=== PATIENT | female | born 1940 | race Hispanic/Latino ===

== ENCOUNTER 2017-04-23 15:44 | Inpatient (IN) | payer MEDICAID ==
[~2017-04-23] VITALS: Ht 167.6 cm; Wt 55.8 kg
[2017-04-23 17:37] LABS: BASOPHILS % (AUTO) 1.1 % (0.0-2.0); LYMPHOCYTES % (AUTO) 10.8 % (20.0-45.0); MEAN CORPUSCULAR HEMOGLOBIN 29.8 PG (27.0-31.0); MEAN CORPUSCULAR HGB CONC 34.3 G/DL (32.0-36.0); MEAN CORPUSCULAR VOLUME 87 FL (80-99); MEAN PLATELET VOLUME 10.4 FL (6.5-10.1); MONOCYTES % (AUTO) 4.5 % (1.0-10.0); NEUTROPHILS % (AUTO) 82.5 % (45.0-75.0); PLATELET COUNT 261 K/UL (150-450); RED CELL DISTRIBUTION WIDTH 12.7 % (11.6-14.8); WHITE BLOOD COUNT 12.4 K/UL (4.8-10.8)
[2017-04-23 18:01] LABS: TROPONIN I < 0.30 ng/mL (<=0.30)
[2017-04-23 18:04] LABS: ALANINE AMINOTRANSFERASE 32 U/L (3-33); ALBUMIN/GLOBULIN RATIO 1.2 (1.0-2.7); ANION GAP 13 (5-15); ASPARTATE AMINO TRANSFERASE 42 U/L (5-40); CALCIUM 9.2 mg/dL (8.6-10.2); CARBON DIOXIDE 26 mEQ/L (20-30); CHLORIDE 103 mEQ/L (98-107); CREATININE 0.9 mg/dL (0.5-0.9); HEMOLYSIS 6; SODIUM 142 mEQ/L (135-145); TOTAL PROTEIN 7.1 g/dL (6.6-8.7)
[2017-04-23 18:14] LABS: CKMB 1.9 ng/mL (< 3.8)
[2017-04-23] MEDS ORDERED: cefTRIAXone 1 GM in NS 55 ML IVPB ONE (19:45)
[2017-04-23 20:09] LABS: APPEARANCE,URINE CLEAR; KETONES,URINE NEGATIVE (NEGATIVE); LEUKOCYTE ESTERASE ,URINE NEGATIVE (NEGATIVE); NITRITE,URINE NEGATIVE (NEGATIVE); PH,URINE 6.5 (4.5-8.0); PROTEIN,URINE NEGATIVE (NEGATIVE); UROBILINOGEN,URINE NORMAL MG/DL (0.0-1.0)
[2017-04-23] MEDS ORDERED: Nitroglycerin Subl 0.4mg tab (Bottle Of 25) SL PRN (21:30)
[2017-04-23] MEDS ORDERED: Morphine Sulfate 2mg/ml Inj IVP PRN (21:30)
[2017-04-23] MEDS ORDERED: LORazepam Inj 2mg/ml 1ml IV PRN (21:30)
[2017-04-23] MEDS ORDERED: Mylanta II UD 30ml ORAL PRN (21:30)
[2017-04-23] MEDS ORDERED: Miralax 17gm pkt ORAL PRN (21:30)
[2017-04-23] MEDS ORDERED: DuoNeb 0.5-3(2.5)mg/3ml neb HHN PRN (21:30)
[2017-04-23 21:53] VITALS: BP 116/69
--- NOTE | 2017-04-23 21:57 | Emergency Room Report ---
History of Present Illness General Chief Complaint: Generalized Weakness Source: Patient, EMS Present Illness HPI The patient is a 76-year-old female presenting from a convalescent hospital for a feeling of weakness. The patient states that she was walking to [place] when she began to feel hot and weak. She denies falling. She denies loss of consciousness. She denies any pain at this time. She denies chest pain or shortness of breath. she denies any other symptoms including nausea, vomiting, fever, chills Allergies: Coded Allergies: No Known Allergies (Unverified , 04/23/17) Patient History Past Medical History: see triage record Pertinent Family History: none Reviewed Nursing Documentation: PMH: Agreed, PSxH: Agreed Nursing Documentation-PMH Past Medical History: No History, Except For Hx Diabetes: Yes Review of Systems All Other Systems: negative except mentioned in HPI Physical Exam Vital Signs Date Time Temp Pulse Resp B/P Pulse Ox O2 Delivery O2 Flow Rate FiO2 04/23/17 15:43 97.2 82 16 120/73 97 Room Air Sp02 EP Interpretation: reviewed, normal General Appearance: no apparent distress, alert, GCS 15, non-toxic Head: normocephalic, atraumatic Eyes: bilateral eye PERRL, bilateral eye normal inspection ENT: hearing grossly normal, normal pharynx, no angioedema, normal voice Neck: full range of motion, supple/symm/no masses Respiratory: chest non-tender, lungs clear, normal breath sounds, speaking full sentences Cardiovascular #1: regular rate, rhythm, no edema Gastrointestinal: normal bowel sounds, non tender, soft, non-distended, no guarding, no rebound Genitourinary: normal inspection, no CVA tenderness Musculoskeletal: back normal, gait/station normal, normal range of motion, non- tender Neurologic: alert, oriented x3, responsive, motor strength/tone normal, sensory intact, speech normal Psychiatric: judgement/insight normal, memory normal, mood/affect normal, no suicidal/homicidal ideation Skin: normal color, no rash, warm/dry, well hydrated Lymphatic: no adenopathy Medical Decision Making PA Attestation Dr. Aguilar is my supervising physician. Patient management was discussed with my supervising physician Diagnostic Impression: Primary Impression: Left against medical advice Additional Impression: Episode of generalized weakness ER Course The patient is a 76-year-old female presenting from a convalescent hospital for a feeling of weakness. Differential diagnosis include but not limited to dehydration, ACS, PE,CHF, pneumonia, among others PE: afebrile. No apparent distress. A&Ox3 PERRL. EOMI. Normal mentation. RRR. No MRG Lungs CTA bilat Abdomen: Normal appearance. Non distended. No ecchymosis. Normal BS. Non TTP. No McBurney point tenderness. No guarding. Skin is warm and dry, no rashes. CBC shows leukocytosis. Otherwise unremarkable CMP: Mild hyperkalemia. Essentially negative cardiac markers Urinalysis unremarkable EKG and CXR unremarkable The patient is given IV fluids and admits to a mild decrease of symptoms. She'll be admitted to this hospital for generalized weakness and leukocytosis. No source of infection has been found. Blood cultures were ordered Dr. Aguilar has spoken with the admitting physician Laboratory Tests Test 04/23/17 17:13 04/23/17 19:25 White Blood Count 12.4 K/UL (4.8-10.8) H Red Blood Count 4.50 M/UL (4.20-5.40) Hemoglobin 13.4 G/DL (12.0-16.0) Hematocrit 39.0 % (37.0-47.0) Mean Corpuscular Volume 87 FL (80-99) Mean Corpuscular Hemoglobin 29.8 PG (27.0-31.0) Mean Corpuscular Hemoglobin Concent 34.3 G/DL (32.0-36.0) Red Cell Distribution Width 12.7 % (11.6-14.8) Platelet Count 261 K/UL (150-450) Mean Platelet Volume 10.4 FL (6.5-10.1) H Neutrophils (%) (Auto) 82.5 % (45.0-75.0) H Lymphocytes (%) (Auto) 10.8 % (20.0-45.0) L Monocytes (%) (Auto) 4.5 % (1.0-10.0) Eosinophils (%) (Auto) 1.0 % (0.0-3.0) Basophils (%) (Auto) 1.1 % (0.0-2.0) Sodium Level 142 mEQ/L (135-145) Potassium Level 5.0 mEQ/L (3.4-4.9) H Chloride Level 103 mEQ/L (98-107) Carbon Dioxide Level 26 mEQ/L (20-30) Anion Gap 13 (5-15) Blood Urea Nitrogen 13 mg/dL (7-23) Creatinine 0.9 mg/dL (0.5-0.9) Estimate Glomerular Filtration Rate mL/min (>60) Glucose Level 119 mg/dL (74-106) H Calcium Level 9.2 mg/dL (8.6-10.2) Total Bilirubin 0.8 mg/dL (0.0-1.2) Aspartate Amino Transferase (AST) 42 U/L (5-40) H Alanine Aminotransferase (ALT) 32 U/L (3-33) Alkaline Phosphatase 139 U/L (35-104) H Total Creatine Kinase 81 U/L (26-140) Creatine Kinase MB 1.9 ng/mL (< 3.8) Creatine Kinase MB Relative Index 2.3 Troponin I < 0.30 ng/mL (<=0.30) Total Protein 7.1 g/dL (6.6-8.7) Albumin 4.0 g/dL (3.5-5.2) Globulin 3.1 g/dL Albumin/Globulin Ratio 1.2 (1.0-2.7) Urine Color Pale yellow Urine Appearance Clear Urine pH 6.5 (4.5-8.0) Urine Specific [place] 1.015 (1.005-1.035) Urine Protein Negative (NEGATIVE) Urine Glucose (UA) Negative (NEGATIVE) Urine Ketones Negative (NEGATIVE) Urine Occult Blood Negative (NEGATIVE) Urine Nitrite Negative (NEGATIVE) Urine Bilirubin Negative (NEGATIVE) Urine Urobilinogen Normal MG/DL (0.0-1.0) Urine Leukocyte Esterase Negative (NEGATIVE) Lab Results Impression CBC shows leukocytosis. Otherwise unremarkable CMP: Mild hyperkalemia. Essentially negative cardiac markers Urinalysis unremarkable EKG Diagnostic Results EP Interpretation: NSR. No acute changes Rate: normal - 72 Rhythm: NSR ST Segments: no acute changes ASA given to the pt in ED: No PA Scribe Text EKG was reviewed and read with my supervising physician. No acute ST segment changes are seen. Normal rate and rhythm. No acute changes. Chest X-Ray Diagnostic Results Chest X-Ray Diagnostic Results : Chest X-Ray Ordered: Yes # of Views/Limited/Complete: 1 View Indication: Other - weakness EP Interpretation: Yes Interpretation: no consolidation, no effusion, no pneumothorax, no acute cardiopulmonary disease Impression: No acute disease Interpreting ER Provider: Dr. Priscilla FRIEDMAN Scribe Text I am acting as scribe for my supervising physician. My supervising physician's interpretation of the chest xrays are there is no consolidation, no effusion, no acute cardiopulmonary disease, no pneumothorax Last Vital Signs Date Time Temp Pulse Resp B/P Pulse Ox O2 Delivery O2 Flow Rate FiO2 04/23/17 15:43 97.2 82 16 120/73 97 Room Air Status: improved Disposition: ADMITTED INPATIENT Condition: Stable Referrals: Nimisha Reyes M.D. (PCP) Patient Instructions: Weakness Additional Instructions: you have chosen to leave AGAINST MEDICAL ADVICE despite the potential seriousness of your condition. You understand the potential consequences of this including . This has been interpreted to [place]oc[place] MANINDER FARMER Apr 23, 2017 21:57
[2017-04-23] MEDS ORDERED: SEROQUEL25 MG ORAL (22:15)
[2017-04-23] MEDS ORDERED: NORCO 5-325 TA1 EACH ORAL (22:16)
[2017-04-23] MEDS ORDERED: METFORMIN HCL500 M1 ORAL (22:16)
[2017-04-23] MEDS ORDERED: ECOTRIN325 MG ORAL (22:17)
[2017-04-23] MEDS ORDERED: MECLIZINE HCL25 MG ORAL (22:17)
[2017-04-23] MEDS ORDERED: NITROGLYCERIN0.4 MG SL (22:18)
[2017-04-24 04:00] VITALS: BP 128/71
[2017-04-24] MEDS: NovoLOG Insulin Flexpen SUBQ SCH ×4 (06:30→21:00)
[2017-04-24 08:13] LABS: BASOPHILS % (AUTO) 0.9 % (0.0-2.0); EOSINOPHILS % (AUTO) 2.3 % (0.0-3.0); LYMPHOCYTES % (AUTO) 20.1 % (20.0-45.0); MEAN CORPUSCULAR HEMOGLOBIN 28.3 PG (27.0-31.0); MEAN CORPUSCULAR HGB CONC 31.8 G/DL (32.0-36.0); MEAN CORPUSCULAR VOLUME 89 FL (80-99); MEAN PLATELET VOLUME 10.1 FL (6.5-10.1); MONOCYTES % (AUTO) 7.6 % (1.0-10.0); NEUTROPHILS % (AUTO) 69.2 % (45.0-75.0); PLATELET COUNT 242 K/UL (150-450); RED BLOOD COUNT 4.42 M/UL (4.20-5.40); RED CELL DISTRIBUTION WIDTH 12.8 % (11.6-14.8)
[2017-04-24 08:34] LABS: ALANINE AMINOTRANSFERASE 22 U/L (3-33); ALBUMIN/GLOBULIN RATIO 1.4 (1.0-2.7); ANION GAP 9 (5-15); ASPARTATE AMINO TRANSFERASE 24 U/L (5-40); CALCIUM 8.8 mg/dL (8.6-10.2); CARBON DIOXIDE 26 mEQ/L (20-30); CHLORIDE 106 mEQ/L (98-107); CHOLESTEROL 141 mg/dL (< 200); CHOLESTEROL/HDL RATIO 2.7 (3.3-4.4); CREATININE 0.8 mg/dL (0.5-0.9); HEMOLYSIS 4; LDL CHOLESTEROL (CALC.) 74 mg/dL (60-99); SODIUM 141 mEQ/L (135-145)
[2017-04-24 08:37] LABS: PROTHROMBIN TIME 10.5 SEC (9.30-11.50)
[2017-04-24 08:39] LABS: THYROID STIMULATING HORMONE 0.849 uIU/mL (0.300-4.500)
[2017-04-24] MEDS: Heparin 5000 units/ml inj SUBQ SCH ×2 (08:55→21:00)
--- NOTE | 2017-04-24 11:57 | History and Physical ---
History of Present Illness General Date patient seen: Apr 24, 2017 Reason for Hospitalization: Generalized Weakness Present Illness HPI 76-year-old female with hx DM, presenting from a convalescent hospital for a feeling of weakness when she was walking to [place] when she began to feel hot and weak. She denies falling. She denies loss of consciousness. She denies any pain at this time. She denies chest pain or shortness of breath. she denies any other symptoms including nausea, vomiting, fever, chills. She is admitted to telemetry, but she is refusing all the care and meds and asking for Russian food. Allergies: Coded Allergies: No Known Allergies (Unverified , 04/23/17) Medication History Scheduled Aspirin* (Ecotrin*), 81 MG ORAL DAILY, (Reported) Meclizine Hcl* (Meclizine*), 25 MG ORAL THREE TIMES A DAY, (Reported) Metformin Hcl* (Metformin Hcl*), 500 MG ORAL TWICE A DAY, (Reported) Quetiapine Fumarate* (Seroquel*), 50 MG ORAL DAILY, (Reported) Scheduled PRN Hydrocodone Bit/Acetaminophen 5-325* ([place] 5-325*), 1 TAB ORAL Q4H PRN for For Pain, (Reported) Miscellaneous Medications Nitroglycerin (Nitroglycerin), 0.4 MG SL, (Reported) Patient History Healthcare decision maker Resuscitation status Full Code Advanced Directive on File No Past Medical/Surgical History Past Medical/Surgical History: (1) Diabetes mellitus (2) Psychiatric disorder Review of Systems All Other Systems: negative except mentioned in HPI Physical Exam General Appearance: WD/WN Lines, tubes and drains: peripheral, central line, trach HEENT: normocephalic Neck: non-tender, normal alignment Respiratory/Chest: chest wall non-tender Breasts: no masses Cardiovascular/Chest: normal peripheral pulses Abdomen: normal bowel sounds, non tender Genitourinary/Rectal: normal genital exam Extremities: normal range of motion, non-tender, normal inspection Last 24 Hour Vital Signs Date Time Temp Pulse Resp B/P Pulse Ox O2 Delivery O2 Flow Rate FiO2 04/24/17 08:00 70 04/24/17 04:00 98.0 66 20 128/71 98 Room Air 04/24/17 04:00 55 04/24/17 01:02 57 04/23/17 21:54 58 16 116/69 99 Room Air 04/23/17 21:53 58 16 116/69 99 Room Air 04/23/17 15:43 97.2 82 16 120/73 97 Room Air Laboratory Tests Test 04/23/17 17:13 04/23/17 19:25 04/24/17 07:25 White Blood Count 12.4 K/UL (4.8-10.8) H 8.0 K/UL (4.8-10.8) Red Blood Count 4.50 M/UL (4.20-5.40) 4.42 M/UL (4.20-5.40) Hemoglobin 13.4 G/DL (12.0-16.0) 12.5 G/DL (12.0-16.0) Hematocrit 39.0 % (37.0-47.0) 39.3 % (37.0-47.0) Mean Corpuscular Volume 87 FL (80-99) 89 FL (80-99) Mean Corpuscular Hemoglobin 29.8 PG (27.0-31.0) 28.3 PG (27.0-31.0) Mean Corpuscular Hemoglobin Concent 34.3 G/DL (32.0-36.0) 31.8 G/DL (32.0-36.0) L Red Cell Distribution Width 12.7 % (11.6-14.8) 12.8 % (11.6-14.8) Platelet Count 261 K/UL (150-450) 242 K/UL (150-450) Mean Platelet Volume 10.4 FL (6.5-10.1) H 10.1 FL (6.5-10.1) Neutrophils (%) (Auto) 82.5 % (45.0-75.0) H 69.2 % (45.0-75.0) Lymphocytes (%) (Auto) 10.8 % (20.0-45.0) L 20.1 % (20.0-45.0) Monocytes (%) (Auto) 4.5 % (1.0-10.0) 7.6 % (1.0-10.0) Eosinophils (%) (Auto) 1.0 % (0.0-3.0) 2.3 % (0.0-3.0) Basophils (%) (Auto) 1.1 % (0.0-2.0) 0.9 % (0.0-2.0) Sodium Level 142 mEQ/L (135-145) 141 mEQ/L (135-145) Potassium Level 5.0 mEQ/L (3.4-4.9) H 4.0 mEQ/L (3.4-4.9) Chloride Level 103 mEQ/L (98-107) 106 mEQ/L (98-107) Carbon Dioxide Level 26 mEQ/L (20-30) 26 mEQ/L (20-30) Anion Gap 13 (5-15) 9 (5-15) Blood Urea Nitrogen 13 mg/dL (7-23) 12 mg/dL (7-23) Creatinine 0.9 mg/dL (0.5-0.9) 0.8 mg/dL (0.5-0.9) Estimat Glomerular Filtration Rate mL/min (>60) mL/min (>60) Glucose Level 119 mg/dL (74-106) H 104 mg/dL (74-106) Calcium Level 9.2 mg/dL (8.6-10.2) 8.8 mg/dL (8.6-10.2) Total Bilirubin 0.8 mg/dL (0.0-1.2) 1.0 mg/dL (0.0-1.2) Aspartate Amino Transf (AST/SGOT) 42 U/L (5-40) H 24 U/L (5-40) Alanine Aminotransferase (ALT/SGPT) 32 U/L (3-33) 22 U/L (3-33) Alkaline Phosphatase 139 U/L (35-104) H 119 U/L (35-104) H Total Creatine Kinase 81 U/L (26-140) Creatine Kinase MB 1.9 ng/mL (< 3.8) Creatine Kinase MB Relative Index 2.3 Troponin I < 0.30 ng/mL (<=0.30) Total Protein 7.1 g/dL (6.6-8.7) 6.0 g/dL (6.6-8.7) L Albumin 4.0 g/dL (3.5-5.2) 3.5 g/dL (3.5-5.2) Globulin 3.1 g/dL 2.5 g/dL Albumin/Globulin Ratio 1.2 (1.0-2.7) 1.4 (1.0-2.7) Urine Color Pale yellow Urine Appearance Clear Urine pH 6.5 (4.5-8.0) Urine Specific [place] 1.015 (1.005-1.035) Urine Protein Negative (NEGATIVE) Urine Glucose (UA) Negative (NEGATIVE) Urine Ketones Negative (NEGATIVE) Urine Occult Blood Negative (NEGATIVE) Urine Nitrite Negative (NEGATIVE) Urine Bilirubin Negative (NEGATIVE) Urine Urobilinogen Normal MG/DL (0.0-1.0) Urine Leukocyte Esterase Negative (NEGATIVE) Prothrombin Time 10.5 SEC (9.30-11.50) Prothromb Time International Ratio 1.0 (0.9-1.1) Activated Partial Thromboplast Time 28 SEC (23-33) Triglycerides Level 72 mg/dL (< 150) Cholesterol Level 141 mg/dL (< 200) LDL Cholesterol 74 mg/dL (60-99) HDL Cholesterol 53 mg/dL (> 60) Cholesterol/HDL Ratio 2.7 (3.3-4.4) L Thyroid Stimulating Hormone (TSH) 0.849 uIU/mL (0.300-4.500) Height (Feet): 5 Height (Inches): 6.00 Weight (Pounds): 123 Medications Current Medications Medications (Trade) Dose Ordered Sig/Ruben Route PRN Reason Start Time Stop Time Status Last Admin Dose Admin Acetaminophen (Tylenol) 650 mg Q4H PRN ORAL T>100.5 04/23/17 21:30 05/23/17 21:29 Al Hydroxide/Mg Hydroxide (Mylanta II) 30 ml Q6H PRN ORAL dyspepsia 04/23/17 21:30 05/23/17 21:29 Albuterol/ Ipratropium (DuoNeb 0.5-3(2.5)mg/3ml) 3 ml Q4H PRN HHN Shortness of Breath 04/23/17 21:30 04/28/17 21:29 Clonidine HCl (Catapres) 0.1 mg Q4H PRN ORAL SBP>160mmHg 04/23/17 21:30 05/23/17 21:29 Dextrose (Dextrose 50%) STAT PRN IV Hypoglycemia 04/23/17 21:30 05/23/17 21:29 Heparin Sodium (Porcine) (Heparin 5000 units/ml) 5,000 units EVERY 12 HOURS SUBQ 04/24/17 09:00 05/24/17 08:59 Insulin Aspart (NovoLOG) BEFORE MEALS AND HS SUBQ 04/24/17 06:30 05/24/17 06:29 Lorazepam (Ativan 2mg/ml 1ml) 0.5 mg Q4H PRN IV For Anxiety 04/23/17 21:30 04/30/17 21:29 Morphine Sulfate (Morphine Sulfate) 1 mg Q4H PRN IVP Severe Pain (Pain Scale 7-10) 04/23/17 21:30 04/30/17 21:29 Nitroglycerin (Ntg) 0.4 mg Q5M X 3 DOSES PRN SL Prn Chest Pain 04/23/17 21:30 05/23/17 21:29 Ondansetron HCl (Zofran) 4 mg Q6H PRN IVP Nausea & Vomiting 04/23/17 21:30 05/23/17 21:29 Polyethylene Glycol (Miralax) 17 gm HSPRN PRN ORAL Constipation 04/23/17 21:30 05/23/17 21:29 Temazepam (Restoril) 15 mg HSPRN PRN ORAL Insomnia 04/23/17 21:30 04/30/17 21:29 Assessment/Plan Problem List: (1) Heat exhaustion ICD Codes: T67.5XXA - Heat exhaustion, unspecified, initial encounter SNOMED: 58809766 (2) Psychiatric disorder ICD Codes: F99 - Mental disorder, not otherwise specified SNOMED: 65212352, 898071456 (3) Diabetes mellitus ICD Codes: E11.9 - Type 2 diabetes mellitus without complications SNOMED: 86594925 Assessment/Plan pt improved, refusing all care and monitoring will dc back to detention. CAIN LOPEZ Apr 24, 2017 11:57
[2017-04-24 12:00] VITALS: BP 101/61
[2017-04-24 16:00] VITALS: BP 126/70
[2017-04-24 20:00] VITALS: BP 121/61
[2017-04-25] MEDS: NovoLOG Insulin Flexpen SUBQ SCH ×2 (06:30→11:30)
[2017-04-25 07:41] VITALS: BP 91/49
[2017-04-25] MEDS: Heparin 5000 units/ml inj SUBQ SCH (09:00)
--- NOTE | 2017-04-25 10:17 | Diagnostic Imaging Report ---
Indications: Shortness of breath Technique: Portable AP chest Findings: Comparison: None Small calcified nodules are present in both lung apices. Linear density left lung base. Inspiratory for suboptimal. Cardiac silhouette partially obscured, may be enlarged. Pulmonary vasculature within normal limits. No pleural abnormality. Aortic arch mildly calcified. Bones are demineralized. Thoracic kyphosis is exaggerated. IMPRESSION: Subsegmental atelectasis left lung base Pulmonary biapical granulomatous disease Questionable cardiomegaly Aortosclerosis Osteopenia
--- NOTE | 2017-04-25 10:17 | Diagnostic Imaging Report ---
Indications: Cephalgia Technique: Continuous helical CT imaging of the brain was performed with automatic exposure control on a Siemens sensation [address] scanner. Axial and coronal images were reconstructed at 5 mm slice thickness and interval. CTDI volume(s): 70 mGy Total DLP: 1404 mGy-cm Findings: Comparison: None Confluent low attenuation is present in the bilateral periventricular and deep cerebral white matter. 2-3 mm low-attenuation focus in peripheral lateral aspect of left parietal lobe (3-21). Focal circumscribed low attenuation/parenchymal loss anterior aspect of left basal ganglia/pelayo radiata. Expected dilation of the subjacent left lateral ventricle. Ventricles, cisterns, and sulci are diffusely prominent. No evidence of mass or hemorrhage, mass effect, midline shift, hydrocephalus, or increased intracranial pressure. Bone window images are unremarkable. Visualized paranasal sinuses and mastoid air cells are clear. IMPRESSION: Left parietal peripheral high attenuation--favor calcification over punctate hemorrhage, latter not completely excludable. Recommend obtaining prior outside examinations for comparison. Otherwise no evidence of acute intracranial pathology Lacunar infarct left basal ganglia/pelayo radiata. Bilateral cerebral periventricular and deepwhite matter low attenuation, nonspecific, likely chronic microvascular ischemic in nature. This correlates with preliminary report generated overnight by Dr. Page. The CT scanner at [facility] is accredited by the [employer] and the scans are performed using protocols designed to limit radiation exposure to as low as reasonably achievable to attain images of sufficient resolution adequate for diagnostic evaluation.
--- NOTE | 2017-04-25 10:39 | Pulmonology Progress Note ---
Assessment/Plan Problems: (1) Heat exhaustion (2) Psychiatric disorder (3) Diabetes mellitus Assessment/Plan vitals signs stable, afebrile all labs are normal pt refusing to leave. Subjective ROS Limited/Unobtainable: No Interval Events: refusing all testing, refusing to leave, because she doesn't feel well Constitutional: Reports: no symptoms HEENT: Repors: no symptoms Allergies: Coded Allergies: No Known Allergies (Unverified , 04/23/17) Objective Last 24 Hour Vital Signs Date Time Temp Pulse Resp B/P Pulse Ox O2 Delivery O2 Flow Rate FiO2 04/25/17 10:03 76 18 Room Air 21 04/25/17 07:41 97.1 68 18 91/49 93 Room Air 04/25/17 04:00 63 04/25/17 00:00 70 04/24/17 20:00 75 04/24/17 20:00 98.5 63 19 121/61 97 Room Air 04/24/17 16:00 98.1 97 18 126/70 97 Room Air 04/24/17 16:00 66 04/24/17 12:00 56 04/24/17 12:00 97.3 61 18 101/61 97 Room Air Intake and Output 04/24/17 04/25/17 19:00 07:00 Output Total 400 ml Balance -400 ml Output Urine Total 400 ml # Voids 3 4 General Appearance: WD/WN, no acute distress HEENT: normocephalic, atraumatic Respiratory/Chest: chest wall non-tender, lungs clear Cardiovascular: normal peripheral pulses, normal rate Abdomen: normal bowel sounds, soft, non tender Genitourinary: normal external genitalia Extremities: no cyanosis Skin: no rash Neurologic/Psychiatric: portable sawyer II-XII grossly normal Lymphatic: no neck adenopathy Current Medications Medications (Trade) Dose Ordered Sig/Ruben Route PRN Reason Start Time Stop Time Status Last Admin Dose Admin Acetaminophen (Tylenol) 650 mg Q4H PRN ORAL T>100.5 04/23/17 21:30 05/23/17 21:29 Al Hydroxide/Mg Hydroxide (Mylanta II) 30 ml Q6H PRN ORAL dyspepsia 04/23/17 21:30 05/23/17 21:29 Albuterol/ Ipratropium (DuoNeb 0.5-3(2.5)mg/3ml) 3 ml Q4H PRN HHN Shortness of Breath 04/23/17 21:30 04/28/17 21:29 Clonidine HCl (Catapres) 0.1 mg Q4H PRN ORAL SBP>160mmHg 04/23/17 21:30 05/23/17 21:29 Dextrose (Dextrose 50%) STAT PRN IV Hypoglycemia 04/23/17 21:30 05/23/17 21:29 Heparin Sodium (Porcine) (Heparin 5000 units/ml) 5,000 units EVERY 12 HOURS SUBQ 04/24/17 09:00 05/24/17 08:59 Insulin Aspart (NovoLOG) BEFORE MEALS AND HS SUBQ 04/24/17 06:30 05/24/17 06:29 Lorazepam (Ativan 2mg/ml 1ml) 0.5 mg Q4H PRN IV For Anxiety 04/23/17 21:30 04/30/17 21:29 Morphine Sulfate (Morphine Sulfate) 1 mg Q4H PRN IVP Severe Pain (Pain Scale 7-10) 04/23/17 21:30 04/30/17 21:29 Nitroglycerin (Ntg) 0.4 mg Q5M X 3 DOSES PRN SL Prn Chest Pain 04/23/17 21:30 05/23/17 21:29 Ondansetron HCl (Zofran) 4 mg Q6H PRN IVP Nausea & Vomiting 04/23/17 21:30 05/23/17 21:29 Polyethylene Glycol (Miralax) 17 gm HSPRN PRN ORAL Constipation 04/23/17 21:30 05/23/17 21:29 Temazepam (Restoril) 15 mg HSPRN PRN ORAL Insomnia 04/23/17 21:30 04/30/17 21:29 CAIN LOPEZ Apr 25, 2017 10:39
--- NOTE | 2017-04-26 00:15 | Consultation ---
DATE OF CONSULTATION: 04/25/2017 NEUROLOGICAL CONSULTATION HISTORY OF PRESENT ILLNESS: The patient is a 76-year-old female, seen in neurological consultation to evaluate intermittent episodes of profound generalized weakness and dizziness. The patient was admitted to this hospital after she was noted when walking to the street she would feel "episodes of hot and being weak", with no loss of consciousness, no changes in level of consciousness, she did not fall and there was no other associated symptomatology. As she was brought to emergency room, her vital signs were stable. Her examination included EKG and chest x-ray, which were quite unremarkable. The patient apparently left initially against medical advice. CAT scan of the brain was obtained. This revealed left parietal peripheral high attenuation total calcification. There was no acute abnormalities. There was old lacunar infarct, left basal ganglia from the . There is also bilateral cerebral vascular periventricular deep white matter attenuation. Chronic microvascular ischemic in nature. Laboratory work included unremarkable CBC study excepted elevated WBC at 12.4. Normal coagulation. Normal urinalysis. Chemistry panel with potassium 5.0, AST 42 and alkaline phosphatase is 139, otherwise unremarkable including TSH and lipid panel. During hospitalization, the patient had some unusual behaviors, she was refusing care, medication and was subsequently much improved. PAST MEDICAL HISTORY: The patient has a history of chronic psychiatric disorder and history of diabetes. MEDICATIONS: The patient's treatment included aspirin, meclizine, metformin and Seroquel. She has needed [place] and nitroglycerin. PHYSICAL EXAMINATION: GENERAL: The patient is well-developed and well-nourished female, now sitting at the bedside and pointing on her bottle of soda, stating that it does not taste good. She was complaining that no one helps her with her dizzy spells. VITAL SIGNS: Her vital signs were stable, blood pressure 133/80 and respirations 14. HEENT: Head, normocephalic. There is no evidence of trauma. Eyes, ears, and throat are clear. NECK: Supple. No meningeal signs. MUSCULOSKELETAL: Unremarkable. No deformities. Peripheral pulses 1+, symmetric. MENTAL STATUS: She is alert and oriented x2. Speech is fluent. Language intact. There is no aphasia. No apraxia. Emotionally inappropriate. She follows command. CRANIAL NERVE II: Pupils both responding to light and accommodation. Extraocular movement intact. No nystagmus. CRANIAL NERVE V: Normal corneal responses. CRANIAL NERVE VII: No facial asymmetry. CRANIAL NERVE VIII: Slight decrease in hearing. CRANIAL NERVES IX THROUGH XII: Tongue is in midline. MOTOR EXAMINATION: Able to move arms and legs against gravity. Normal coordination. Normal svenck-ng-sdbe and heel-perez testing. Deep tendon reflexes 1+ symmetric. Gait is stable, but wobbly on the turning. IMPRESSION: 1. History of recurrent transients of dizziness and lightheadedness, very likely representing a presyncope, doubt labyrinthitis. 2. History of diabetes mellitus. 3. Chronic psychiatric disorder. RECOMMENDATION: The patient instructed during episode of dizziness, she would lie down horizontal position and take fluids. In addition, she had a trial of meclizine 12.5 mg t.i.d. for dizzy spells. Continue with aspirin 81 mg daily and bedtime Seroquel 25 mg. Currently, neurological stable. Thank you for allowing me to see in this interesting patient in neurological consultation. Tony Holm M.D. DR: ANGELA JOB#: [id number] CC:
--- NOTE | 2017-04-26 09:10 | Discharge Summary ---
Discharge Summary Hospital Course Date of Admission Apr 23, 2017 at 21:35 Date of Discharge Apr 25, 2017 at 14:23 Admitting Diagnosis weakness, leukocytosis HPI Lexy Franco is a 76 year old female who was admitted on Apr 23, 2017 at 21: 35 for Weakness,Leukocytosis Hospital Course dc summary#[id number] Discharge Medications Continued Medications: Aspirin* (Ecotrin*) 325 Mg Tablet.dr 81 MG ORAL DAILY, TAB Hydrocodone Bit/Acetaminophen 5-325* ([place] 5-325*) 1 Each Tablet 1 TAB ORAL Q4H PRN for For Pain, TAB 0 Refills Meclizine Hcl* (Meclizine*) 25 Mg Tablet 25 MG ORAL THREE TIMES A DAY, TAB Metformin Hcl* (Metformin Hcl*) 500 Mg Tablet 500 MG ORAL TWICE A DAY, TAB Quetiapine Fumarate* (Seroquel*) 25 Mg Tablet 50 MG ORAL DAILY, TAB Discharge Condition Upon Discharge: stable Discharge Disposition Patient was discharged to [facility] (04) Discharge Diagnoses: Discharge Instructions Discharge Instructions Special Instructions I have been assigned to complete a D/C Summary on this account. I was not involved in the patient management Jackelin Cadena NP ([place]) Apr 26, 2017 09:10
--- NOTE | 2017-04-26 15:16 | Discharge Summary 2 SIG ---
DATE OF ADMISSION: 04/23/2017 DATE OF DISCHARGE: 04/25/2017 REASON FOR ADMISSION: 76 years old female with a history of psychiatric disorder, diabetes, presented from the detention facility for evaluation. The patient reported feeling weak. She stated she was walking to worship when she felt hot and weak. She denied falling. Denied blackouts, fainting, or loss of consciousness. Denied any pain. The patient denied chest pain or shortness of breath. No nausea. No vomiting. No fever. No chills. No abdominal pain. Workup in the emergency room revealed leukocytosis - 12.4, stable electrolytes, potassium -5.0. Troponin negative. Renal parameters stable. Urinalysis with no evidence of UTI. EKG showed normal sinus rhythm. No acute ischemic changes. Troponin negative. Chest x-ray showed atelectasis left base, otherwise no acute cardiopulmonary changes. The patient started on IV fluids and admitted for further management. ADMITTING DIAGNOSES: 1. Heat exhaustion. 2. Diabetes mellitus. 3. Leukocytosis. 4. Psychiatric disorder. HOSPITAL STAY: The patient admitted. The patient started on IV fluids. Neurology consult was requested. CT of the head revealed no acute intracranial pathology. Neurologist stated that the patient had a history of recurrent anxiety, dizziness, and lightheadedness episode likely presyncopal. He doubt labyrinthitis as an etiology. The patient was instructed by neurologist to lie down during the episodes of dizziness and take oral fluids. The patient also started on trial of meclizine. Aspirin was continued. Seroquel at night continued. Per neurologist, the patient was stable for discharge. Stable neurological status. Blood sugar was managed with sliding scale of insulin. DVT prophylaxis provided. Bowel regimen instituted. The patient declined any further treatment, wanted to go back to the detention [facility]. The patient was stable for discharge. No further episodes of dizziness or lightheadedness and leukocytosis resolved. Her pulse oximetry stable on room air. The patient was working with physical and occupational therapist. The patient was stable for discharge. DISCHARGE DIAGNOSES: 1. Heat exhaustion. 2. History of recurrent anxiety, dizziness, and lightheadedness episode, 3. Possibly presyncope. 4. Diabetes mellitus. 5. Psychiatric disorder. 6. Leukocytosis, resolved likely related to heat exhaustion. DISCHARGE MEDICATION: See medication reconciliation list. DISCHARGE INSTRUCTIONS: The patient discharged to detention [facility]. FOLLOWUP: Follow up with medical doctor at the facility. Slime Mclaughlin M.D. I have been assigned to dictate discharge summary on this account and I was not involved in the patient's management. Jackelin TafoyaMount Vernon Hospitallynn NSarah BethPSarah Beth DR: JOSE JOB#: [id number] CC: MORALES
--- NOTE | 2017-04-27 15:14 | Cardiology Report ---
APPROVED REPORT EKG Measurement Heart [id number] Normal sinus rhythm with sinus arrhythmia Normal ECG
== END 2017-04-25 14:23 | DRG 815 ==
LOC: EDBD 15:44 → EMR 17:00 → EDBEDREQ 20:05 → EDBEDREQSVC 20:08 → EDBEDREQ 21:08 → 2E 21:35
DX: T67.5XXA Heat exhaustion, unspecified, initial encounter (principal); E11.9 Type 2 diabetes mellitus without complications; R55 Syncope and collapse; F99 Mental disorder, not otherwise specified; D72.829 Elevated white blood cell count, unspecified; X58.XXXA Exposure to other specified factors, initial encounter; Y92.89 Other specified places as the place of occurrence of the external cause
CPT/HCPCS: 36415; 70450; 71010; 80053; 80061; 81003; 82550; 82553; 82962; 84443; 84484; 85025; 85610; 85730; 87081; 93005; 94664; J1815